=== PATIENT | female | born 1995 | race Caucasian/White ===

== ENCOUNTER 2017-07-22 20:19 | Emergency (ER) | payer OTHER ==
[~2017-07-22] VITALS: Ht 160 cm; Wt 63.5 kg
[2017-07-22 20:20] VITALS: BP_SYST 116
[2017-07-22] MEDS ORDERED: NACL 0.9% 1,000 ML IV ONE (21:51)
[2017-07-22] MEDS ORDERED: METOCLOPRAMIDE HCL 10 MG/2 ML VIAL IVP ONE (22:00)
[2017-07-22] MEDS ORDERED: ONDANSETRON HCL 4 MG/2 ML VIAL IVP ONE (22:15)
[2017-07-22 22:39] LABS: CALCIUM 9.5 mg/dL (8.4-11.0); CREATININE 0.62 mg/dL (0.55-1.30); HEMATOCRIT 45.8 % (36-48); HEMOGLOBIN 15.2 g/dL (12.0-16.0); MEAN CORPUSCULAR HEMOGLOBIN 31 pg (27-31); MEAN CORPUSCULAR HGB CONC 33 % (32-36); MEAN CORPUSCULAR VOLUME 93 fL (79.0-98.0); PLATELET COUNT (AUTO) 257 K/uL (130-430); POTASSIUM 3.2 mmol/L (3.5-5.1); RED BLOOD CELL COUNT(AUTO) 4.95 MIL/uL (4.2-6.2); RED CELL DISTRIBUTION WIDTH 11.5 % (9.0-15.0); WHITE BLOOD COUNT (AUTO) 7.3 K/uL (4.8-10.8)
[2017-07-22 22:44] LABS: ALBUMIN 3.6 g/dL (3.4-4.8); TOTAL BILIRUBIN 0.6 mg/dL (0.0-1.0)
[2017-07-22 23:20] LABS: BAND % (MANUAL) 25 % (0-6); LYMPHOCYTES % (MANUAL) 20 % (20-46)
[2017-07-22 23:21] LABS: ATYPICAL LYMPHOCYTES % 5 % (0-0); BASOPHILS % (MANUAL) 0 % (0-2); EOSINOPHILS % (MANUAL) 1 % (0-7); MONOCYTES % (MANUAL) 4 % (0-11)
[2017-07-23 00:10] VITALS: BP_SYST 122
== END 2017-07-23 00:10 | disposition home or self-care (01) ==
LOC: SED 20:19
DX: K56.7 Ileus, unspecified (principal)
CPT/HCPCS: 36415; 74021; 80053; 85007; 85027; 96361; 96374; 96375; 99285; J2405; J2765; J7030

== ENCOUNTER 2017-10-14 21:43 | Emergency (ER) | payer OTHER ==
[~2017-10-14] VITALS: Ht 160 cm; Wt 63.5 kg
[2017-10-14 21:47] VITALS: BP_SYST 134
[2017-10-14] MEDS ORDERED: BELLADONNA ALKALOIDS/PHENOBARB 5 ML UDC PO ONE (22:15)
[2017-10-14] MEDS ORDERED: MAG-AL HYDROX/SIMETH 30 ML UDC PO ONE (22:15)
[2017-10-14] MEDS ORDERED: LIDOCAINE VISCOUS 2%, 15 ML UDC MM ONE ×2 (22:15→22:30)
[2017-10-14 22:37] LABS: CREATININE 0.81 mg/dL (0.55-1.30)
[2017-10-14 22:39] LABS: BASOPHILS % (AUTO) 0.8 % (0.0-2.0); EOSINOPHILS % (AUTO) 0.8 % (0.0-4.0); HEMATOCRIT 39.6 % (36-48); HEMOGLOBIN 13.2 g/dL (12.0-16.0); LYMPHOCYTES # (AUTO) 1.5 K/uL (1.0-5.5); LYMPHOCYTES % (AUTO) 31.5 % (20.5-51.5); MEAN CORPUSCULAR HEMOGLOBIN 31 pg (27-31); MEAN CORPUSCULAR HGB CONC 33 % (32-36); MEAN CORPUSCULAR VOLUME 94 fL (79.0-98.0); MONOCYTES # (AUTO) 0.7 K/uL (0.0-1.0); MONOCYTES % (AUTO) 14.4 % (1.7-9.3); NEUTROPHILS # (AUTO) 2.4 K/uL (1.8-7.7); NEUTROPHILS % (AUTO) 52.5 % (40.0-70.0); PLATELET COUNT (AUTO) 254 K/uL (130-430); RED BLOOD CELL COUNT(AUTO) 4.21 MIL/uL (4.2-6.2); RED CELL DISTRIBUTION WIDTH 12.7 % (9.0-15.0); WHITE BLOOD COUNT (AUTO) 4.6 K/uL (4.8-10.8)
[2017-10-14 22:41] LABS: ALBUMIN 3.9 g/dL (3.4-4.8); TOTAL BILIRUBIN 0.5 mg/dL (0.0-1.0)
[2017-10-14 22:57] LABS: BILIRUBIN,URINE NEGATIVE (NEGATIVE); BLOOD, URINE NEGATIVE (NEGATIVE); CLARITY/URINE CLOUDY (CLEAR); COLOR,URINE YELLOW (YELLOW); GLUCOSE,URINE NEGATIVE (NEGATIVE); KETONES,URINE 1+ (NEGATIVE); LEUKOCYTE ESTERASE ,URINE 2+ (NEGATIVE); NITRITE, URINE NEGATIVE (NEGATIVE); PROTEIN URINE NEGATIVE (NEGATIVE)
[2017-10-14] MEDS ORDERED: KETOROLAC TROMETHAMINE 60 MG/2 ML VIAL IM ONE (23:00)
[2017-10-14 23:01] LABS: HCG,QUAL RESULT NEGATIVE (NEGATIVE)
[2017-10-14 23:01] LABS: INR 1.1 (0.8-1.2)
[2017-10-14 23:11] LABS: BACTERIA,URINE MODERATE /HPF (None Seen); RBC,URINE 0-3 /HPF (0-3); URINE AMORPHOUS PHOSPHATES 2+ /HPF (None Seen)
[2017-10-14] MEDS ORDERED: NACL 0.9% 1,000 ML IV ONE (23:45)
[2017-10-15 01:37] VITALS: BP_SYST 131
== END 2017-10-15 01:37 | disposition home or self-care (01) ==
LOC: SED 21:43
DX: K29.00 Acute gastritis without bleeding (principal); N39.0 Urinary tract infection, site not specified; R07.89 Other chest pain; Z91.013 Allergy to seafood
CPT/HCPCS: 36415; 71046; 74176; 80053; 81000; 81025; 82150; 83690; 84484; 84703; 85025; 85379; 85610; 87086; 93005; 96360; 96372; 99285; J1885; J2001; J7030

== ENCOUNTER 2020-04-21 10:15 | Emergency (ER) | payer OTHER ==
[~2020-04-21] VITALS: Ht 160 cm; Wt 60.3 kg
[2020-04-21 10:15] VITALS: BP_SYST 127
--- NOTE | 2020-04-21 10:15 | NUR ---
BROUGHT BACK TO BED #7 AND TRIAGED. REPORT GIVEN TO BONNIE
--- NOTE | 2020-04-21 10:28 | NUR ---
PT STATES LAST NIGHT THOUGHT SHE GOT BIT BY A INSECT, NOW WITH REDNESS AND MOISTURE TO THAT AREA. STATES TINGLING TO INNER RIGHT THIGH, LIPS AND ARMS. STATES PAIN IS A 10/10. STATES SHE PUT CORTISONE CREAM ON AREA WITHOUT RELIEF.
--- NOTE | 2020-04-21 10:32 | NUR ---
DR EDMOND AT BEDSIDE FOR EVALUATION
[2020-04-21 10:50] VITALS: BP_SYST 127
--- NOTE | 2020-04-21 10:50 | NUR ---
Patient given written and verbal discharge instructions and verbalizes understanding. ER MD discussed with patient the results and treatment provided. Patient in stable condition. ID arm band removed. Rx of Benadryl given. Patient educated on pain management and to follow up with PMD. Pain Scale 0. Opportunity for questions provided and answered. Medication side effect fact sheet provided.
== END 2020-04-21 10:50 | disposition home or self-care (01) ==
LOC: SED 10:15
DX: T78.40XA Allergy, unspecified, initial encounter (principal); R03.0 Elevated blood-pressure reading, without diagnosis of hypertension; Z88.8 Allergy status to other drugs, medicaments and biological substances; Z91.013 Allergy to seafood; X58.XXXA Exposure to other specified factors, initial encounter
CPT/HCPCS: 99282